=== PATIENT | female | born 1970 | race Caucasian/White ===

== ENCOUNTER 2020-05-17 16:06 | Emergency (ER) | payer OTHER, SELFPAY ==
[~2020-05-17] VITALS: Ht 167.6 cm; Wt 76.7 kg
[2020-05-17 16:07] VITALS: Ht 167.6 cm; Wt 76.7 kg
[2020-05-17 17:35] LABS: CALCIUM 8.8 mg/dL (8.5-10.1); CARBON DIOXIDE 23.5 mmol/L (21-32); CHLORIDE SERUM 104 mmol/L (98-107); CREATININE SERUM 0.8 mg/dL (0.6-1.0); GFR1 > 60 mL/min; GLUCOSE SERUM 84 mg/dL (74-106); SODIUM SERUM 139 mmol/L (136-145)
[2020-05-17 17:38] LABS: BASOPHIL % 1.6 % (0-2); PLATELET COUNT 298 x10^3mcL (130-400); RED CELL DISTRIBUTION WIDTH 14.6 % (11.5-14.5)
[2020-05-17 17:39] LABS: ALBUMIN 4.1 g/dL (3.4-5.0); ALKALINE PHOSPHATASE 52 U/L (46-116); ALT/SGPT 17 U/L (14-59); AST/SGOT 19 U/L (15-37); BILIRUBIN TOTAL 0.6 mg/dL (0.20-1.00); C REACTIVE PROTEIN 0.5 mg/dL (<=0.9); LACTIC DEHYDROGENASE (LDH) 251 U/L (100-190); TOTAL PROTEIN, SERUM 7.4 g/dL (6.4-8.2)
[2020-05-17 20:29] LABS: UA SPECIFIC GRAVITY 1.015 (1.005-1.035); microscopic required? YES; urine erythrocyte TRACE (NEGATIVE)
[2020-05-17 22:04] VITALS: BP 125/67
== END 2020-05-17 20:55 | disposition home or self-care (01) ==
LOC: ED 16:06
PROVIDERS: Specialist
DX: J40 Bronchitis, not specified as acute or chronic (principal); E86.0 Dehydration; Z20.828 Contact with and (suspected) exposure to other viral communicable diseases
CPT/HCPCS: 36600; 83880; 87804; J1885; J3411; J3475; J3490; Q0092; U0003-CS

== ENCOUNTER 2020-11-28 12:02 | Emergency (ER) | payer OTHER ==
[~2020-11-28] VITALS: Ht 167.6 cm; Wt 79.8 kg
[2020-11-28 12:10] VITALS: Ht 167.6 cm; Wt 79.8 kg
[2020-11-28 14:15] VITALS: BP 138/78
== END 2020-11-28 14:15 | disposition home or self-care (01) ==
LOC: ED 12:02
DX: S33.5XXA Sprain of ligaments of lumbar spine, initial encounter (principal); X50.0XXA Overexertion from strenuous movement or load, initial encounter; Y93.89 Activity, other specified; Y92.89 Other specified places as the place of occurrence of the external cause; Y99.0 Civilian activity done for income or pay
CPT/HCPCS: J1885